=== PATIENT | male | born 1980 | race Caucasian/White ===

== ENCOUNTER 2021-06-28 17:29 | Emergency (ER) | payer SELFPAY ==
[2021-06-28] VITALS (30 sets, daily range): BP systolic 113–161; BP diastolic 75–99; PULSE 89–115; RESP 19–37; TEMP 36.8–38.2; O2SAT 93–98
--- NOTE | 2021-06-28 17:30 | RT.EKG_ITS ---
APPROVED REPORT Exam: Resting ECG Reason for Exam: sob Patient Location: E HR:103 bpm ECG Measurements Heart Rate 103 AXIS SC 122 P 44 QRSd 92 QRS 49 QT 320 T -15 QTc 420 Conclusion Sinus tachycardia...rate> 99 Borderline T abnormalities, diffuse leads...T flat/neg
--- NOTE | 2021-06-28 17:48 | W.ED.GENAD ---
Discharge Plan Disposition Patient Disposition: HOME Condition: Stable Discharge Details Clinical Impression: Pneumonia, Transaminitis, Creatinine elevation Primary Care Provider: Unknown,Unknown ED Provider: Jing Schaeffer Home Meds and New Rx's Prescriptions: New doxycycline hyclate 100 mg capsule 100 mg PO BID Qty: 14 RF: 0 Continued melatonin-pyridoxine HCl (B6) 1 EACH tablet,ext release multiphase 1 ea PO HS Qty: 90 RF: 0 pantoprazole [Protonix] 20 MG tablet,delayed release (DR/EC) 20 mg PO DAILY Qty: 90 RF: 3 venlafaxine 37.5 MG tablet extended release 24hr 20 mg PO DAILY Qty: 30 RF: 3 Discharge Instructions Instructions: Doxycycline (By mouth), Pneumonia (ED) Additional Instructions: Your work-up here is concerning for pneumonia. Please take the antibiotics as prescribed. Even if symptoms improve, please take the entire course. If you develop fever/chills, inability stay hydrated, increase shortness of breath, difficulty breathing or the new/worsening symptom please seek care urgently once again. Referral for local primary care has been sent, care management will reach out to you regarding follow-up next week with them. I have also asked that they discuss your insurance concerning symptoms further. Stand Alone Forms: Work Release Medical Decision Making Patient is a pleasant 30-year-old male presenting today with chief complaint of body aches, cough and shortness of breath. He states he began having body aches and chills approximately 5 days ago. Cough began yesterday. States that today he began having shortness of breath particularly with movements. He denies any chest pain. States that he has vomited x1 today and associated with triggering his gag reflex. Is not currently endorsing any nausea. No diarrhea. Patient reports he has chronic constipation. Denies any abdominal pain. Patient has been vaccinated against COVID-19. No known sick contacts he reports he works in [employer] industry and is around many people every day. On exam, patient appears nontoxic. He does appear dehydrated with dry mucous membranes. His lungs are clear, normal cardiac exam. He has no lower extremity edema or calf pain. Patient is tachycardic with a heart rate of 103. Febrile with a temp of 38.2. Patient is febrile and tachycardic, plan to work-up for possible pneumonia, Covid, or other etiology. With the tachycardia and shortness of breath, I did consider pulmonary embolism and will screen with a D-dimer. Will give Tylenol for the fever and body aches. Will hydrate the patient. Labs reviewed. Potassium slightly low at 1.15. D-dimer is elevated over thousand, will move forward with CT for PE protocol. Creatinine is elevated at 1.4. I do not have any previous for comparison. Again, patient did appear quite dehydrated he is receiving IV fluids at this time. Transaminitis noted. Not significantly elevated. No previous for comparison. Chest x-ray was reviewed by myself, concerning for pneumonia in the right upper lobe. CT reviewed by radiologist: FINDINGS: Pulmonary arteries: There is satisfactory enhancement of the pulmonary arteries with no evidence of pulmonary embolism. Aorta: Unremarkable. No aortic aneurysm. No aortic dissection. Lungs: There is heterogeneous airspace consolidation involving the posterior aspect of the right upper lobe and the posterior aspect of the right lower lobe. No segmental consolidation is seen within the left upper lobe, the left lower lobe, or the right middle lobe. Pleural spaces: Unremarkable. No pneumothorax. No pleural effusion. Heart: Unremarkable. No cardiomegaly. No pericardial effusion. Lymph nodes: Unremarkable. No enlarged lymph nodes. Liver: The liver appears diffusely decreased in density Bones/joints: Unremarkable. No acute fracture. Soft tissues: Unremarkable. IMPRESSION: 1. No evidence of pulmonary embolism. 2. Ty consolidation involving the right upper lobe and right lower lobe consistent with pneumonia. Follow-up until clear is recommended. 3. Fatty liver disease. Discussed findings with the patient. We will begin on doxycycline. Encourage hydration. Advised Tylenol and/or ibuprofen as needed for discomfort. His Covid 19 testing was negative. I advised he follow-up with primary care next week for reevaluation and discuss repeat imaging as indicated. Patient does not have local primary care, I have a care management team to assist with this. Strict return precautions were given. All of his questions and concerns were addressed and he is in agreement plan. First dose of antibiotics as well as dosing for tomorrow morning given to the patient. HPI General Mode of arrival: ambulatory. Date/Time Provider Initiated Documentation: 06/28/21 17:36. Limitations to Documentation: no limitations. Information obtained by: patient and RN notes reviewed. History of Present Illness 40 year old M presents to the emergency department with the chief complaint of cough, fever, SOB, nausea, vomiting, described as moderate, with intensity rated at 6. Quality is described as aching (diffuse body aches), Patient reports no radiation. Patient started experiencing this day(s) (5) and it has been constant. No relieving factors improve symptom(s), No exacerbating factors reported . Patient notes fever/chills, loss of appetite, nausea/vomiting (reports vomiting x 1 after gag reflex today) and shortness of breath; denies chest pain, diaphoresis, rash, syncope and weakness. Patient did receive the following treatments prior to arrival, none Related Data Home Medications Medication Instructions Recorded Confirmed melatonin-pyridoxine HCl (B6) 1 ea PO HS #90 tab.chew 04/13/13 06/28/21 pantoprazole [Protonix] 20 mg PO DAILY #90 tab-cap 08/27/13 venlafaxine 20 mg PO DAILY #30 tab-cap 12/15/13 06/28/21 doxycycline hyclate 100 mg PO BID #14 cap 06/28/21 Previous Rx's Medication Instructions Recorded doxycycline hyclate 100 mg PO BID #14 cap 06/28/21 Allergies Allergy/AdvReac Type Severity Reaction Status Date / Time trazodone Allergy Mild Unverified 06/28/21 18:06 buspirone [Buspirone] AdvReac Intermediate PSYCHOSIS Unverified 06/28/21 18:06 General Stated Complaint: GenMedical JONATHAN: 3 Review of Systems Constitutional Constitutional: Reports as per HPI, Reports chills, Reports fever(s) and Denies headache(s) Eyes Eyes: Reports as per HPI, Denies eye discharge and Denies irritation ENT Ears, Nose, Mouth, and Throat: Reports as per HPI and Denies headache(s) Cardiovascular Cardiovascular: Reports as per HPI, Denies chest pain and Reports dyspnea Respiratory Respiratory: Reports as per HPI, Reports cough, Denies hemoptysis, Denies pain on inspiration, Denies pain with cough, Reports dyspnea and Denies wheezing Gastrointestinal Gastrointestinal: Reports as per HPI, Denies abdominal pain, Denies change in bowel habits, Reports nausea and Reports vomiting Integumentary/Breasts Skin/Breast: Reports as per HPI and Denies rash Neurologic Neurologic: Reports as per HPI and Denies headache(s) Allergic/Immunologic Allergic/Immunologic: Denies wheezing PFSH Social History Smoking/Tobacco Use Status: Never Smoking risk assessment performed?: Yes Alcohol Intake: current Alcohol Intake frequency: a few times a month Drug use: Never Substance use type: does not use Do you feel safe at home: Yes Do you feel safe in your relationship?: Yes Exam Const General: cooperative, healthy appearing, comfortable, no acute distress, well developed and well groomed Nutritional Appearance: well nourished and overweight Orientation: alert and awake [facility] Head: normal to inspection, normocephalic and atraumatic Ears: hearing grossly normal bilaterally, external ears normal and TM's normal bilaterally General nose exam: external nose normal and nares normal Face and sinus: normal facial exam, sinuses nontender and face symmetric Mouth: oral mucosae normal, lip normal, tongue normal, oropharynx normal and mucous membranes dry (appears dry) Teeth and gingiva: dentition normal Throat: posterior oropharynx normal, tonsils normal and uvula midline Eyes General: appearance normal, both eyes and all related structures Neck Neck: normal visual inspection, full ROM, no lymphadenopathy and no meningeal signs Resp Effort & Inspection: normal respiratory effort, able to speak in complete sentences and no respiratory distress Auscultation: clear to auscultation bilaterally, no rales, no rhonchi and no wheezes Cardio Rate: regular rate Rhythm: regular rhythm Heart Sounds: S1 normal and S2 normal Skin General skin exam: no rashes or lesions noted Neuro General: patient alert and patient awake Cognition: normal cognition Speech: speech normal Gait: normal gait Extrem General: normal to inspection, capillary refill normal, no pedal edema, no calf tenderness and normal gait Psych Appearance: grossly normal and well kempt Mental Status: mental status grossly normal Speech and Movement: speech and movement normal Course Vital Signs Vital signs: Vital Signs Temperature 38.2 C H 06/28/21 17:40 Pulse 103 H 06/28/21 17:40 Respiratory Rate 06/28/21 17:40 Blood Pressure 161/86 H 06/28/21 17:40 Pulse Oximetry 98 06/28/21 17:40 Temperature 38.2 C H 06/28/21 17:40 Temperature Source Oral 06/28/21 17:40 Pulse 103 H 06/28/21 17:40 Respiratory Rate 20 06/28/21 17:40 Blood Pressure 161/86 H 06/28/21 17:40 Blood Pressure Position Sitting 06/28/21 17:40 Pulse Oximetry 98 06/28/21 17:40 Oxygen Delivery Method Room Air 06/28/21 17:40 Oxygen Flow Rate 0 06/28/21 17:40
--- NOTE | 2021-06-28 18:00 | DI.RAD_ITS ---
Exam(s) XR PORTABLE CHEST AP EXAM: XR PORTABLE CHEST AP CLINICAL HISTORY: cough, SOB. TECHNIQUE: 2D digital imaging was performed. COMPARISON: No exams were available for comparison FINDINGS: Heart size is upper normal. The mediastinum is not widened. There is a significant area of infiltrate in the right upper lobe. Left lung is clear. No pleural e ffusions. Chest leads in place. IMPRESSION: Right upper lobe infiltrate. Left lung is clear. No pleural effusions. DATA REPOSITORY: RADIATION DOSE DELIVERED: All CT scans at this facility use at least one of these dose optimization techniques: automated exposure control; mA and/or kV adjustment per patient size (includes targeted e xams where dose is matched to clinical indication); or iterative reconstruction.
[2021-06-28] MEDS: Normal Saline 1,000 ML 1000 ML IV (18:09)
[2021-06-28 18:15] LABS: Source Nasal/Nares
[2021-06-28 18:20] LABS: Abs Immature Grans 0.03 10^3/uL (0.0-0.06); Absolute Basophil Count 0.02 10^3/uL (0.0-0.2); Absolute Eosinophil Count 0.05 10^3/uL (0.0-0.7); Absolute Lymphocyte Count 1.15 10^3/uL (1.2-3.4); Absolute Monocyte Count 0.61 10^3/uL (0.1-0.8); Absolute Neutrophil Count 4.84 10^3/uL (1.2-6.7); Basophils % 0.3; Eosinophils % 0.7; HCT 42.6 % (40.0-50.0); HGB 13.9 g/dL (13.5-17.5); Immature Grans % 0.4; Lymphocytes % 17.2; MCHC 32.6 % (32.0-36.0); MCV 88.9 fL (80-95); MPV 8.9 fL (8.0-11.0); Monocytes % 9.1; Neutrophils % 72.3; Nucleated RBC 0 %; Platelet Count 244 10^3/uL (130-400); RBC 4.79 10^6/uL (4.36-5.78); RDW 12.9 % (11.8-14.1)
[2021-06-28] MEDS: Acetaminophen 500 MG TAB 1000 MG PO (18:21)
[2021-06-28 18:32] LABS: ALT 73 U/L (16-63); AST 38 U/L (15-37); Albumin 3.2 g/dL (3.4-5.0); Alkaline Phosphatase 129 U/L (46-116); Anion Gap 10.1 mmol/L (3-11); BUN 11 mg/dL (7-18); Bilirubin, Total 0.3 mg/dL (0.2-1.0); CO2 27.9 mmol/L (21.0-32.0); CREATININE 1.4 mg/dL (0.70-1.30); Calcium 8.7 mg/dL (8.5-10.1); Chloride 102 mmol/L (98-107); Estimated GFR 55.58 (mL/min/1.73m2); Glucose 105 mg/dL (74-106); Potassium 3.5 mmol/L (3.5-5.1); Sodium 140 mmol/L (136-145)
[2021-06-28 18:52] LABS: D-Dimer 1222 ng/mlFEU (<500)
--- NOTE | 2021-06-28 19:00 | DI.CT_ITS ---
Exam(s) CT CHEST PE CTA EXAM: CT CHEST PE CTA CLINICAL HISTORY: SOB, elevated d-dimer. TECHNIQUE: Imaging Protocol: CT angiography of the chest was performed using pulmonary embolus dania col. Multi planar reconstructions were performed. CONTRAST MATERIAL: Intravenous: Omnipaque 350 Contrast volume: 100 cc COMPARISON: No exams were available for comparison FINDINGS: CHEST: PULMONARY ARTERIES: There are no intraluminal filling defects to suggest acute pulmonary emboli. LUNGS: There is a large area of consolidation in the posterior segment of the right upper lobe and al so involving the superior segment and basal segments of the right lower lobe.. There is no associate d pleural effusion. No cavitation. There is sparing of the right middle lobe and left lung is clear . No left pleural effusion. No focal findings in the trachea and mainstem bronchi. MEDIASTINUM: No prominent hilar adenopathy although there is mild subcarinal adenopathy. No adenopat hy in the anterior mediastinal fat. No axillary nor supraclavicular adenopathy. Visualized thyroid gland appears unremarkable. CARDIAC: Heart size is upper normal. There is no pericardial effusion.Caliber of the thoracic aorta is within normal limits. There is no significant shift of the interventricular septum. PARTIALLY VISUALIZED UPPERMOST ABDOMEN: Hepatomegaly. No adrenal masses. Spleen size upper normal. OSSEOUS: No significant osseous lesions.. IMPRESSION: 1. Large right lung infiltrate involving right upper lobe and right lower lobe. Sparing of the right middle lobe. No pleural effusion.Left lung is clear. 2. Slightly prominent subcarinal lymph nodes. No obvious hilar adenopathy. 3. No evidence of pulmonary embolus. No aortic dissection. No pericardial effusion. First read by [facility] RADIATION DOSE DELIVERED: 566.76mGy.cm Total DLP DATA REPOSITORY: All CT scans at this facility are submitted to the National Radiology Data Registry (NRDR) Dose Index Registry (DIR) with the [employer] (A[employer]). RADIATION OPTIMIZATION: All CT scans at this facility use at least one of these dose optimization te chniques: automated exposure control; mA and/or kV adjustment per patient size (includes targeted exa ms where dose is matched to clinical indication); or iterative reconstruction.
--- NOTE | 2021-06-28 19:36 | DI.VRAD_ITS ---
PROCEDURE INFORMATION: Exam: XR Chest Exam date and time: 06/28/2021 6:03 PM Age: 40 years old Clinical indication: Cough and fever TECHNIQUE: Imaging protocol: XR of the chest. Views: 1 view. COMPARISON: No relevant prior studies available. FINDINGS: Lungs: See Pleural spaces finding. Pleural spaces: There is consolidation within the right upper lobe abutting the right minor fissure. Heart/Mediastinum: Unremarkable. No cardiomegaly. Bones/joints: Unremarkable. EKG leads overlie the chest. IMPRESSION: Right upper lobe consolidation suspicious for pneumonia. Follow-up until clear is recommended. Dictated and Authenticated by: Danilo Arias MD. Ordering:ALICE Ch MD
[2021-06-28] MEDS: Omnipaque 350 MG/ML 100 ML BTL IJ (20:04)
[2021-06-28] MEDS: Normal Saline Flush 10 ML SYR IVP (20:04)
--- NOTE | 2021-06-28 20:20 | DI.VRAD_ITS ---
PROCEDURE INFORMATION: Exam: CTA Chest With Contrast Exam date and time: 06/28/2021 7:11 PM Age: 40 years old Clinical indication: Other: SOB, elevated d-dimer TECHNIQUE: Imaging protocol: Computed tomographic angiography of the chest with contrast. 3D rendering (Not supervised by radiologist): MIP and/or 3D reconstructed images were created by the technologist. Contrast material: OMNIPAQUE 350; Contrast volume: 85 ml; Contrast route: INTRAVENOUS (IV); COMPARISON: CR XR PORTABLE CHEST AP 06/28/2021 6:40 PM FINDINGS: Pulmonary arteries: There is satisfactory enhancement of the pulmonary arteries with no evidence of pulmonary embolism. Aorta: Unremarkable. No aortic aneurysm. No aortic dissection. Lungs: There is heterogeneous airspace consolidation involving the posterior aspect of the right upper lobe and the posterior aspect of the right lower lobe. No segmental consolidation is seen within the left upper lobe, the left lower lobe, or the right middle lobe. Pleural spaces: Unremarkable. No pneumothorax. No pleural effusion. Heart: Unremarkable. No cardiomegaly. No pericardial effusion. Lymph nodes: Unremarkable. No enlarged lymph nodes. Liver: The liver appears diffusely decreased in density Bones/joints: Unremarkable. No acute fracture. Soft tissues: Unremarkable. IMPRESSION: 1. No evidence of pulmonary embolism. 2. Ty consolidation involving the right upper lobe and right lower lobe consistent with pneumonia. Follow-up until clear is recommended. 3. Fatty liver disease. Dictated and Authenticated by: Danilo Arias MD. Ordering:ALICE Ch MD
[2021-06-28 20:37] LABS: COVID-19 PCR Negative (Negative)
[2021-06-28] MEDS: Doxycycline Hyclate 100 MG, 2 CAPS/BTL PO (20:58)
--- NOTE | 2021-06-28 21:02 | NUR.NOTE ---
Referral to Care Management to establish PCP in one week for pneumonia, and to get help with resources to get insurance coverage.Nursing Note:
== END 2021-06-28 21:01 | disposition home or self-care (01) ==
PROVIDERS: Emergency Provider Physician Assistant
DX: J18.8 Other pneumonia, unspecified organism (principal); R74.01 Elevation of levels of liver transaminase levels; R94.4 Abnormal results of kidney function studies; R79.1 Abnormal coagulation profile; E86.0 Dehydration; R00.0 Tachycardia, unspecified; Z20.822 Contact with and (suspected) exposure to COVID-19; Z03.818 Encounter for observation for suspected exposure to other biological agents ruled out
CPT/HCPCS: 36415; 71275; 80053; 87635; 93005; 96360; 99285; 71045; 85025; 85379; 93010; 99284; J3490

== ENCOUNTER 2021-07-03 16:22 | Outpatient (REF) | payer SELFPAY ==
[2021-07-05 14:11] LABS: COVID-19 RT-PCR UVMMC Result Negative (Negative)
== END 2021-07-03 16:23 | disposition home or self-care (01) ==
LOC: LBN 16:22
PROVIDERS: Visit Provider Physician Assistant
DX: Z20.822 Contact with and (suspected) exposure to COVID-19 (principal)
CPT/HCPCS: U0003

== ENCOUNTER 2021-07-17 22:45 | Emergency (ER) | payer SELFPAY ==
[2021-07-17 22:49] VITALS: BP 163/99; PULSE 82; RESP 18; TEMP 36.6; O2SAT 97
--- NOTE | 2021-07-17 23:00 | NUR.NOTE ---
Nursing Note: Dr. Cerda at bedside with ultrasound machine. Patient denies any burning with urination or blood in urine.
--- NOTE | 2021-07-17 23:16 | W.ED.GENAD ---
Discharge Plan Disposition Patient Disposition: HOME Condition: Good Discharge Details Clinical Impression: Acute epididymitis Primary Care Provider: Unknown,Unknown ED Provider: Jason Cerda Home Meds and New Rx's Prescriptions: New levofloxacin 500 mg tablet 500 mg PO DAILY 10 Days Qty: 10 RF: 0 Continued melatonin-pyridoxine HCl (B6) 1 EACH tablet,ext release multiphase 1 ea PO HS Qty: 90 RF: 0 omeprazole 20 mg Capsule,Delayed Release(Dr/Ec) 20 mg PO DAILY RF: 0 fluoxetine 20 mg Capsule 20 mg PO DAILY RF: 0 Discharge Instructions Instructions: Epididymitis (ED) Additional Instructions: At this time you have symptoms consistent with epididymitis. Please take 1000 mg of Tylenol every 6 hours and 800 mg of ibuprofen every 4 hours. These are the maximum doses. The antibiotic levofloxacin has been sent to your pharmacy on file. Please take this as directed. We have placed an order for an ultrasound for you tomorrow. Please call them in the morning to schedule a time for further evaluation of your testicle. If you notice any worsening of your symptoms, or any new symptoms such as worsening testicular pain or viselike pain or twisting pain in your testicle, vomiting, diarrhea, fever, chills, shortness of breath, chest pain, numbness, weakness, or fainting , please return immediately to the emergency department for reevaluation. Please follow up with your primary care provider as soon as possible for reassessment and reevaluation. As always, it was a pleasure participating in your medical care today. Referrals: Luis Manuel Moralez MD [ [facility] STAFF PHYSICIAN] - Medical Decision Making This is a 40-year-old male with a past medical history of previous hydrocele on the left testicle, previous left inguinal hernia requiring surgical repair, presents today for right testicular pain and groin pain. Patient had initial onset of symptoms yesterday at 2:30 AM. He described it as achy. It traveled up from his right testicle into his groin. He denies any urinary complaints whatsoever then. The pain went on throughout the day yesterday and then went away on its own. When he awoke this morning he has no pain at all. He had taken Tylenol and Motrin and this helps relieve his symptoms. When he awoke this morning he was pain-free, and continued to be pain-free throughout the day until this evening when the pain again came on gradually throughout the evening. He again describes it as achy in the right testicle radiating up to the groin. He denies any trauma. It is made better with heat, and lying down. It is made worse with palpation. He states last time he ejaculated was 2 weeks ago. No pain or blood done. He states he is not had sex for years, but he does state that he is in a monogamous relationship with his otherwise. He denies any history of STDs or penile discharge. He denies any urethral pain or increased urinary frequency. Patient is uncircumcised. He denies any abdominal pain, nausea, vomiting or diarrhea. He states the pain feels similar to when he had his left hydrocele. Physical exam demonstrates no abdominal tenderness, no flank tenderness, no groin tenderness whatsoever. Patient scrotum demonstrate mild tenderness on palpation of the right testicle no tenderness on palpation of the left. No horizontal or abnormal lie. Cremasteric reflexes present bilaterally. Tenderness is present on the epididymis, as well as minimal tenderness on the testicle itself. On clinical assessment and by history symptoms are clinically inconsistent at time of exam for testicular torsion. In addition to the supplemental examination ultrasound was performed. Ultrasound was limited in nature. Limited ultrasound showed good blood flow throughout, and equivalent blood flow when the 2 testicles. Epididymis appears mildly inflamed on ultrasound. Epididymis is tender on exam. Physical exam and clinical history are inconsistent with testicular torsion at this time. Clinical exam and history appear more consistent at this time with mild epididymitis. We will get a urinalysis to evaluate for potential infection although I feel this is unlikely. Symptoms are also inconsistent acute appendicitis, kidney stone, or incarcerated or strangulated hernia based on assessment and exam at this time. 11:36 PM Urinalysis is returned unremarkable. No evidence of significant RBCs or infection. Pending gonorrhea chlamydia. Will treat with Levaquin, and NSAIDs for epididymitis. Will schedule outpatient ultrasound for further delineation of epididymitis. I have extensively reviewed the treatment plan and discharge instructions with the patient. I have addressed all patient concerns at this time. The patient was made aware of what symptoms to monitor for that would warrant a return to the emergency department. Discussed the plan with the patient, they demonstrate verbal understanding and agreement with our assessment and plan at this time. The documentation in this chart was dictated using [employer] dictation software. Please excuse any dictation errors. HPI General Date/Time Provider Initiated Documentation: 07/17/21 22:47. HPI Narrative: This is a 40-year-old male with a past medical history of previous hydrocele on the left testicle, previous left inguinal hernia requiring surgical repair, presents today for right testicular pain and groin pain. Patient had initial onset of symptoms yesterday at 2:30 AM. He described it as achy. It traveled up from his right testicle into his groin. He denies any urinary complaints whatsoever then. The pain went on throughout the day yesterday and then went away on its own. When he awoke this morning he has no pain at all. He had taken Tylenol and Motrin and this helps relieve his symptoms. When he awoke this morning he was pain-free, and continued to be pain-free throughout the day until this evening when the pain again came on gradually throughout the evening. He again describes it as achy in the right testicle radiating up to the groin. He denies any trauma. It is made better with heat, and lying down. It is made worse with palpation. He states last time he ejaculated was 2 weeks ago. No pain or blood done. He states he is not had sex for years, but he does state that he is in a monogamous relationship with his otherwise. He denies any history of STDs or penile discharge. He denies any urethral pain or increased urinary frequency. Patient is uncircumcised. He denies any abdominal pain, nausea, vomiting or diarrhea. He states the pain feels similar to when he had his left hydrocele. Related Data Home Medications Medication Instructions Recorded Confirmed melatonin-pyridoxine HCl (B6) 1 ea PO HS #90 tab.chew 04/13/13 07/17/21 fluoxetine 20 mg PO DAILY 07/17/21 07/17/21 levofloxacin 500 mg PO DAILY 10 Days #10 tab 07/17/21 omeprazole 20 mg PO DAILY 07/17/21 07/17/21 Previous Rx's Medication Instructions Recorded levofloxacin 500 mg PO DAILY 10 Days #10 tab 07/17/21 Allergies Allergy/AdvReac Type Severity Reaction Status Date / Time trazodone Allergy Mild Verified 07/17/21 22:53 buspirone [Buspirone] AdvReac Intermediate PSYCHOSIS Verified 07/17/21 22:53 General Stated Complaint: FlankPain JONATHAN: 3 Review of Systems All systems reviewed & are unremarkable except as noted in HPI and below PFSH Social History Smoking/Tobacco Use Status: Never Smoking risk assessment performed?: Yes Alcohol Intake: former Drug use: Never Substance use type: does not use Do you feel safe at home: Yes Do you feel safe in your relationship?: Yes Exam Narrative Exam Narrative: 1.Const: Well-nourished, Well-developed, appearing stated age 2.Eyes: PERRL, no conjunctival injection, and symmetrical lids. 3.ENT: Atraumatic external nose and ears. Moist MM. Neck: Symmetric, trachea midline, No thyromegaly. 4.CVS: +S1/S2, No murmurs or gallops. Peripheral pulses 2+ and equal in all extremities. Brisk capillary refill in all extremities. 5.RESP: Unlabored respiratory effort. Clear to auscultation bilaterally. No wheezes rales or rhonchi 6.GI: Soft, Nontender/Nondistended, No hepatosplenomegaly. No guarding or rebound. No pain at McBurney's point, negative Anthony sign. No flank or CVA tenderness General exam: Entire genital exam and ultrasound was performed with female nurse Stefani at bedside. Left testicle is nontender, normal lie. Right testicle also demonstrates normal lie, no horizontal lie. Mild tenderness on the testicle itself, as well as by the epididymis. No palpable hydrocele or mass. Cremasteric reflexes present bilaterally for both testicles. No palpable hernia on exam in the scrotum or in the distal right groin. Questionable small hernia proximally, but this is notably nontender. No redness swelling or edema in that area. Limited bedside ultrasound was performed, and testicle demonstrates good blood flow throughout the right testicle, comparison with the left testicle demonstrates equivalent blood throat flow throughout. Mild edema of the epididymis noted on bedside ultrasound. No atypical mass is noted. Penis is uncircumcised. Retraction of foreskin demonstrates no purulence, no discharge, no tenderness or evidence of infection. 7.MSK: Normocephalic/Atraumatic, Extremities w/o deformity or ttp No cyanosis or clubbing, Normal movement of all extremities 8.Skin: Warm, Dry. No rashes or lesions. 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 Sensation grossly intact, no focal neurologic deficits. 10.Psych: (AAO) x3. Appropriate mood and affect Course Vital Signs Vital signs: Vital Signs Temperature 36.6 C 07/17/21 22:49 Pulse 82 07/17/21 22:49 Respiratory Rate 18 07/17/21 22:49 Blood Pressure 163/99 H 07/17/21 22:49 Pulse Oximetry 97 07/17/21 22:49 Temperature 36.6 C 07/17/21 22:49 Temperature Source Temporal Artery Scan 07/17/21 22:49 Pulse 82 07/17/21 22:49 Respiratory Rate 18 07/17/21 22:49 Respiratory Effort Non-Labored 07/17/21 22:57 Blood Pressure 163/99 H 07/17/21 22:49 Blood Pressure Position Supine 07/17/21 22:49 Pulse Oximetry 97 07/17/21 22:49 Oxygen Delivery Method Room Air 07/17/21 22:49 Oxygen Flow Rate 0 07/17/21 22:49 Pain Level 6 07/17/21 22:58
[2021-07-17 23:28] LABS: Bilirubin Negative (Negative); Blood Trace-intact (Negative); Clarity Clear (Clear); Glucose Negative (Negative); Ketones Negative (Negative); Leukocyte Esterase Negative (Negative); Nitrite Negative (Negative); Specific Gravity >= 1.030 (1.005-1.025); Urobilinogen 0.2 EU/dL (Up TO 0.2)
[2021-07-17 23:30] LABS: Bacteria Negative HPF (Negative); C & S Indicated? No; Casts Negative LPF (Negative); Crystals Negative HPF (Negative); Epithelial Cells Rare HPF (Negative); Mucus Negative (Negative); RBC 0-2 HPF (0-2); WBC Negative HPF (0-5)
[2021-07-17 23:47] LABS: Bilirubin Negative (Negative); Blood Trace-intact (Negative); Clarity Clear (Clear); Glucose Negative (Negative); Ketones Negative (Negative); Leukocyte Esterase Negative (Negative); Nitrite Negative (Negative); Specific Gravity >= 1.030 (1.005-1.025); Urobilinogen 0.2 EU/dL (Up TO 0.2)
[2021-07-17] MEDS: levoFLOXacin 500 MG TAB PO (23:47)
[2021-07-17 23:53] LABS: Bacteria Rare HPF (Negative); C & S Indicated? No; Casts Negative LPF (Negative); Crystals Negative HPF (Negative); Epithelial Cells Rare HPF (Negative); Mucus Negative (Negative); RBC 0-2 HPF (0-2); WBC Negative HPF (0-5)
--- NOTE | 2021-07-18 00:23 | NUR.NOTE ---
Out Patient ultra sound req. faxed to [facility]. Copy given to patient and told to call [phone] to make appt for 07/18/21.Nursing Note:
[2021-07-19 16:09] LABS: Chlamydia Result Negative (Negative); GC Result Negative (Negative)
== END 2021-07-18 00:23 | disposition home or self-care (01) ==
PROVIDERS: Emergency Provider Student in an Organized Health Care Education/Training Program
DX: N45.1 Epididymitis (principal)
CPT/HCPCS: 87491; 87591; 99283; 81003; 81015

== ENCOUNTER 2021-09-18 19:19 | Emergency (ER) | payer SELFPAY ==
[2021-09-18 19:24] VITALS: BP 163/91; PULSE 103; RESP 18; TEMP 36.8; O2SAT 97
--- NOTE | 2021-09-18 19:41 | ED.GENADUL_ITS ---
Discharge Plan Disposition Patient Disposition: HOME Condition: Stable Discharge Details Clinical Impression: Kidney stone on left side Primary Care Provider: Unknown,Unknown ED Provider: Lynette Byers Home Meds and New Rx's Prescriptions: New tamsulosin 0.4 mg capsule 0.4 mg PO QHS 7 Days Qty: 7 RF: 0 oxycodone 5 mg capsule 5 mg PO Q8H PRN (Reason: pain) Qty: 7 RF: 0 No Action melatonin-pyridoxine HCl (B6) 1 EACH tablet,ext release multiphase 1 ea PO HS Qty: 90 RF: 0 omeprazole 20 mg Capsule,Delayed Release(Dr/Ec) 20 mg PO DAILY RF: 0 fluoxetine 20 mg Capsule 20 mg PO DAILY RF: 0 Discharge Instructions Instructions: Kidney Stones (ED) Additional Instructions: CT shows kidney stones to both kidneys. The kidney stone on the left side where you are having pain is causing a little bit of backup of fluid in your kidney. Please strain all your urine. Follow-up with urology in 1 week. Take the medications as directed. Please take the tamsulosin 1 a day at bedtime. Take the oxycodone with food as needed for moderate to severe pain. Please stay away from NSAID such as ibuprofen. Follow up with primary care provider in 3-5 days. Return to ED sooner if any worsening or concerns. Increase oral fluids. Referrals: Luis Manuel Moralez MD [ [facility] STAFF PHYSICIAN] - 1 week Medical Decision Making CBC, CMP, lipase, urinalysis, CT abdomen pelvis with IV contrast ordered. Differential diagnosis includes but not limited to kidney stone, diverticulitis, epididymitis, hydrocele, or less likely testicular torsion. CBC shows no leukocytosis, hemoglobin 13.2, absolute neutrophils 6.94, sodium 136 potassium 4.1, BUN is 25 and creatinine is 2.1 GFR is 34.81 which is elevated for the patient. In June the creatinine was 1.4, urinalysis shows trace blood 3-5 RBCs. FINDINGS: Liver: Unremarkable. Gallbladder and bile ducts: Unremarkable. Pancreas: Unremarkable. Spleen: Unremarkable. Adrenal glands: Unremarkable. Kidneys and ureters: There is a non-obstructing right upper pole renal calculus 0.2 cm. There is a 0.2 cm calculus at the left ureterovesical junction. There is moderate left hydroureteronephrosis. There is non-specific perinephric fat stranding. Stomach and bowel: There is descending colonic diverticulosis. No dilated loops of bowel to suggest obstruction. Appendix: No evidence of appendicitis. Intraperitoneal space: No free air. No significant fluid collection. Vasculature: No abdominal aortic aneurysm. Lymph nodes: No enlarged lymph nodes. Urinary bladder: Unremarkable as visualized. Reproductive: Unremarkable as visualized. Bones/joints: Degenerative changes in the lumbar spine. No acute fracture. Soft tissues: Unremarkable. IMPRESSION: 1. Left ureterovesical junction calculus with moderate left hydroureteronephrosis. 2. Descending colonic diverticulosis. 2229: Spoke with Dr. Moralez with urology regarding patient case and details he recommends tamsulosin pain medication and follow-up in the office in approximately [address] results and plan of care for follow-up with patient who verbalizes understanding. I did discuss strict return instructions and plan for follow-up with urology. Patient is hemodynamically stable here in the department. He has not required any pain control while here tonight. Patient discharged with a urine strainer and instructions for home care. This text was generated using [employer] system, please disregard any oddities of phrase or misspellings. HPI General Mode of arrival: ambulatory . Date/Time Provider Initiated Documentation: 09/18/21 19:19 . Limitations to Documentation: no limitations . Information obtained by: patient and RN notes reviewed . HPI Narrative: 40-year-old male presents to the ER with chief complaint of left lower quadrant abdominal pain which radiates around to his left groin this began approximately 48 to 72 hours ago. He does endorse some nausea and vomiting. He denies any dysuria. Does have a history of right-sided epididymitis. He denies any swelling in his testicles. He reports the pain gets worse after eating. Denies any fever chills or any other associated symptoms. Past surgical history includes hernia repair years ago. Related Data Home Medications Medication Instructions Recorded Confirmed melatonin-pyridoxine HCl (B6) 1 ea PO HS #90 tab.chew 04/13/13 09/18/21 fluoxetine 20 mg PO DAILY 07/17/21 09/18/21 omeprazole 20 mg PO DAILY 07/17/21 09/18/21 oxycodone 5 mg PO Q8H PRN #7 cap 09/18/21 tamsulosin 0.4 mg PO QHS 7 Days #7 cap 09/18/21 Previous Rx's Medication Instructions Recorded oxycodone 5 mg PO Q8H PRN #7 cap 09/18/21 tamsulosin 0.4 mg PO QHS 7 Days #7 cap 09/18/21 Allergies Allergy/AdvReac Type Severity Reaction Status Date / Time trazodone Allergy Mild Verified 09/18/21 19:28 buspirone [Buspirone] AdvReac Intermediate PSYCHOSIS Verified 09/18/21 19:28 General Stated Complaint: Abd Prob JONATHAN: 3 Review of Systems All systems reviewed & are unremarkable except as noted in HPI and below Gastrointestinal Gastrointestinal: Reports abdominal pain, Denies diarrhea, Reports nausea and Reports vomiting Genitourinary Genitourinary: Denies dysuria and Reports flank pain PFSH All Active Problems (Updated 09/18/21 @ 22:33 by Lynette Byers) Acute epididymitis (Acute) Kidney stone on left side (Acute) Pneumonia (Acute) Transaminitis (Acute) Creatinine elevation (Acute) Social History Smoking/Tobacco Use Status: Never Smoking risk assessment performed?: Yes Alcohol Intake: former Drug use: Never Substance use type: does not use Do you feel safe at home: Yes Do you feel safe in your relationship?: Yes Exam Narrative Exam Narrative: Constitutional: Alert and oriented x3. Appears stated age. Normal body habitus. Head: Normocephalic, no trauma. Eyes: Pupils PERRL, Red reflex noted, EOM's intact. Eyelids symmetrical without lesions, discharge, or swelling. ENT: Bilateral TM's WNL, External ear normal to inspection, no mastoid TTP, swelling, or erythema, Nasal turbinates WNL, no nasal discharge. Normal dentition, Posterior pharynx WNL, no exudate. Chest: RRR, Normal S1, S2, distal pulses intact. Resp: Lungs clear to auscultation bilaterally, no wheezes, rales, or rhonchi. Abdomen: Soft, non-distended, Normoactive bowel sounds all 4 quads. Tenderness to palpation left lower quadrant. Musculoskeletal: Normal gait, 5/5 strength to all four extremities. Skin: No suspicious rashes or lesions. Capillary refill less than 2 sec. Neurologic: Cranial nerves II-XII intact. Alert and oriented x 3. Motor: No deficits noted. Sensory: Intact bilaterally all 4 extremities. Reflexes: DTR's intact bilaterally.. Hematologic/Lymphatic: No ecchymosis, no lymphadenopathy. Course Vital Signs Vital signs: Vital Signs Temperature 36.8 C 09/18/21 19:24 Pulse 103 H 09/18/21 19:24 Respiratory Rate 18 09/18/21 19:24 Blood Pressure 163/91 H 09/18/21 19:24 Pulse Oximetry 97 09/18/21 19:24 Temperature 36.8 C 09/18/21 19:24 Temperature Source Temporal Artery Scan 09/18/21 19:24 Pulse 103 H 09/18/21 19:24 Respiratory Rate 18 09/18/21 19:24 Respiratory Effort 09/18/21 19:31 Blood Pressure 163/91 H 09/18/21 19:24 Pulse Oximetry 97 09/18/21 19:24 Pain Level 4 09/18/21 19:24
[2021-09-18] MEDS: Normal Saline 1,000 ML 1000 ML IV (19:59)
[2021-09-18 20:04] LABS: Abs Immature Grans 0.04 10^3/uL (0.0-0.06); Absolute Basophil Count 0.02 10^3/uL (0.0-0.2); Absolute Eosinophil Count 0.07 10^3/uL (0.0-0.7); Absolute Monocyte Count 0.98 10^3/uL (0.1-0.8); Absolute Neutrophil Count 6.94 10^3/uL (1.2-6.7); Basophils % 0.2; Eosinophils % 0.7; HGB 13.2 g/dL (13.5-17.5); Immature Grans % 0.4; Lymphocytes % 19.1; MCH 29.5 pg (27.0-33.0); MCV 89.5 fL (80-95); MPV 8.7 fL (8.0-11.0); Monocytes % 9.8; Neutrophils % 69.8; Nucleated RBC 0 %; Platelet Count 218 10^3/uL (130-400); RBC 4.47 10^6/uL (4.36-5.78); RDW 12.8 % (11.8-14.1); RDW-SD 42.1 fL; WBC 9.95 10^3/uL (4.4-10.8)
[2021-09-18 20:11] LABS: Bilirubin Negative (Negative); Blood Trace-intact (Negative); Clarity Clear (Clear); Glucose Negative (Negative); Ketones Negative (Negative); Leukocyte Esterase Negative (Negative); Nitrite Negative (Negative); Specific Gravity >= 1.030 (1.005-1.025); Urobilinogen 0.2 EU/dL (Up TO 0.2)
[2021-09-18 20:17] LABS: ALT 38 U/L (16-63); AST 22 U/L (15-37); Albumin 3.8 g/dL (3.4-5.0); Alkaline Phosphatase 105 U/L (46-116); BUN 25 mg/dL (7-18); Bilirubin, Total 0.3 mg/dL (0.2-1.0); CO2 26.1 mmol/L (21.0-32.0); CREATININE 2.1 mg/dL (0.70-1.30); Calcium 8.4 mg/dL (8.5-10.1); Estimated GFR 34.81 (mL/min/1.73m2); Glucose 117 mg/dL (74-106); Lipase 39 U/L (73-393); Magnesium 2.3 mg/dL (1.8-2.4); Total Protein 7.4 g/dL (6.4-8.2)
[2021-09-18 20:19] LABS: Bacteria Negative HPF (Negative); C & S Indicated? No; Crystals Negative HPF (Negative); Epithelial Cells Few HPF (Negative); Mucus Trace (Negative); WBC Negative HPF (0-5)
[2021-09-18 20:23] LABS: Anion Gap 5.9 mmol/L (3-11); Chloride 104 mmol/L (98-107); Potassium 4.1 mmol/L (3.5-5.1); Sodium 136 mmol/L (136-145)
--- NOTE | 2021-09-18 21:00 | DI.CT_ITS ---
Exam(s) CT ABDOMEN PELVIS WO EXAM: CT ABDOMEN PELVIS WO CLINICAL HISTORY: Left Flank pain, R/O Stone, Diverticulitis. TECHNIQUE: Imaging Protocol: Axial computed tomography images with coronal and sagittal reformatted images were created and reviewed. COMPARISON: CT CT CHEST PE CTA from 06/28/[address] CHEST PE CTA from 06/28/2021 FINDINGS: ABDOMEN: Lung Bases: Normal where visualized. Liver: There is diffuse fatty infiltration of the liver. There is a 4 mm hypodensity in the left lob e of the liver. This is indeterminate on this noncontrast examination. Gallbladder and biliary tract: No radiodense calculus or biliary ductal dilation. Pancreas: Normal density, no abnormal calcifications or inflammatory process. Spleen: Normal. Kidneys: Normal size, contour and axis.There is a 3 mm stone in the distal ureter at the UVJ. There is moderate hydronephrosis. No masses seen. There is a nonobstructing 2 mm stone in the superior reinaldo e of the right kidney. Adrenal glands: No mass is seen. Lymph nodes: Within normal limits. Abdominal Aorta: Abdominal portion non-dilated. PELVIS: Bladder:Symmetric distention, no gross wall thickening. Bowel: No obstruction or bowel wall thickening. Appendix is unremarkable. There is diverticulosis in the sigmoid colon, but no evidence of acute diverticulitis. Peritoneal cavity: No ascites, collection or mesenteric inflammatory response. No free air. Reproductive organs: Within normal limits. Bones: Within normal limits. Soft Tissues: Within normal limits. There is a small fat containing left inguinal hernia. IMPRESSION: 3 mm left UVJ stone causing moderate hydronephrosis. RADIATION DOSE DELIVERED: 1,105.43mGy.cm Total DLP DATA REPOSITORY: All CT scans at this facility are submitted to the National Radiology Data Registry (NRDR) Dose Index Registry (DIR) with the [employer] (ACR). RADIATION OPTIMIZATION: All CT scans at this facility use at least one of these dose optimization te chniques: automated exposure control; mA and/or kV adjustment per patient size (includes targeted exa ms where dose is matched to clinical indication); or iterative reconstruction.
[2021-09-18 22:02] LABS: Anion Gap 7.7 mmol/L (3-11); BUN 24 mg/dL (7-18); CO2 26.3 mmol/L (21.0-32.0); Calcium 8.2 mg/dL (8.5-10.1); Chloride 105 mmol/L (98-107); Estimated GFR 36.82 (mL/min/1.73m2); Glucose 120 mg/dL (74-106); Potassium 4.1 mmol/L (3.5-5.1); Sodium 139 mmol/L (136-145)
--- NOTE | 2021-09-18 22:17 | DI.VRAD_ITS ---
PROCEDURE INFORMATION: Exam: CT Abdomen And Pelvis Without Contrast Exam date and time: 09/18/2021 9:01 PM Age: 40 years old Clinical indication: Abdominal pain; Patient HX: Left flank pain, R/O stone, diverticulitis TECHNIQUE: Imaging protocol: Computed tomography of the abdomen and pelvis without contrast. Total images: 1339 Radiation optimization: All CT scans at this facility use at least one of these dose optimization techniques: automated exposure control; mA and/or kV adjustment per patient size (includes targeted exams where dose is matched to clinical indication); or iterative reconstruction. COMPARISON: CT CHEST PE CTA 06/28/2021 7:45 PM FINDINGS: Liver: Unremarkable. Gallbladder and bile ducts: Unremarkable. Pancreas: Unremarkable. Spleen: Unremarkable. Adrenal glands: Unremarkable. Kidneys and ureters: There is a non-obstructing right upper pole renal calculus 0.2 cm. There is a 0.2 cm calculus at the left ureterovesical junction. There is moderate left hydroureteronephrosis. There is non-specific perinephric fat stranding. Stomach and bowel: There is descending colonic diverticulosis. No dilated loops of bowel to suggest obstruction. Appendix: No evidence of appendicitis. Intraperitoneal space: No free air. No significant fluid collection. Vasculature: No abdominal aortic aneurysm. Lymph nodes: No enlarged lymph nodes. Urinary bladder: Unremarkable as visualized. Reproductive: Unremarkable as visualized. Bones/joints: Degenerative changes in the lumbar spine. No acute fracture. Soft tissues: Unremarkable. IMPRESSION: 1. Left ureterovesical junction calculus with moderate left hydroureteronephrosis. 2. Descending colonic diverticulosis. Dictated and Authenticated by: Monique Staton MD. Ordering:DINO Ojeda MD
--- NOTE | 2021-09-18 22:33 | NUR.NOTE ---
Referral to Care Management to establish pcp routinely and faxed to Dr Moralez to f/u in one week, L UVJ Kidney Stone.Nursing Note:
[2021-09-18] MEDS: Tamsulosin 0.4 MG CAPCR PO (22:39)
[2021-09-18 22:44] VITALS: BP 151/102; PULSE 93; RESP 18; TEMP 37.2; O2SAT 96
== END 2021-09-18 22:49 | disposition home or self-care (01) ==
PROVIDERS: Emergency Provider Registered Nurse Emergency
DX: N13.2 Hydronephrosis with renal and ureteral calculous obstruction (principal); R10.32 Left lower quadrant pain
CPT/HCPCS: 80048; 80053; 83690; 96360; 99284; 74176; 81003; 81015; 83735; 85025

== ENCOUNTER 2021-12-26 17:17 | Outpatient (REF) | payer SELFPAY ==
[2021-12-26 20:12] LABS: Bilirubin Negative (Negative); Blood Negative (Negative); Clarity Clear (Clear); Glucose Negative (Negative); Ketones Negative (Negative); Leukocyte Esterase Negative (Negative); Nitrite Negative (Negative); Specific Gravity >= 1.030 (1.005-1.025); Urobilinogen 0.2 EU/dL (Up TO 0.2); pH 5.5 (5-8)
== END 2021-12-26 17:18 | disposition home or self-care (01) ==
LOC: LBN 17:17
PROVIDERS: Visit Provider Physician Assistant
DX: R39.9 Unspecified symptoms and signs involving the genitourinary system (principal)
CPT/HCPCS: 81003

== ENCOUNTER 2021-12-28 23:34 | Emergency (ER) | payer SELFPAY ==
[2021-12-28 23:39] VITALS: BP 162/90; PULSE 87; RESP 18; TEMP 36.7; O2SAT 98
--- NOTE | 2021-12-28 23:45 | DI.CT_ITS ---
Exam(s) CT RENAL COLIC WO EXAM: CT RENAL COLIC WO CLINICAL HISTORY: R flank and testicle pain. TECHNIQUE: Imaging Protocol: Axial computed tomography images with coronal and sagittal reformatted images were created and reviewed. COMPARISON: CT CT ABDOMEN PELVIS WO from 09/18/2021 FINDINGS: ABDOMEN: Lung Bases: Normal where visualized. Liver: Normal density. No measurable mass. Gallbladder and biliary tract: No radiodense calculus or biliary ductal dilation. Pancreas: Normal density, no abnormal calcifications or inflammatory process. Spleen: Normal. Kidneys: Normal size, contour and axis.There is a 3 mm nonobstructing stone in the midpole of the rig ht kidney. There is mild dilatation of the right ureter but no ureteral stone is seen. There is a 2 mm density in the dependent portion of the urinary bladder which may reflect a recently passed stone . No masses seen. Adrenal glands: No mass is seen. Lymph nodes: Within normal limits. Abdominal Aorta: Abdominal portion non-dilated. PELVIS: Bladder:Symmetric distention, no gross wall thickening. Bowel: No obstruction or bowel wall thickening. Appendix is unremarkable. There are few diverticula in the sigmoid colon, but no evidence of acute diverticulitis. Peritoneal cavity: No ascites, collection or mesenteric inflammatory response. No free air. Reproductive organs: Within normal limits. Bones: Within normal limits. Soft Tissues: Small fat containing left inguinal hernia. IMPRESSION: 1. Mild dilatation of the right renal collecting system without a ureteral stone. There is a 2 mm de nsity in the dependent portion of the urinary bladder probably reflecting a recently passed stone. 2. Right nephrolithiasis. RADIATION DOSE DELIVERED: 924.9mGy.cm Total DLP DATA REPOSITORY: All CT scans at this facility are submitted to the National Radiology Data Registry (NRDR) Dose Index Registry (DIR) with the [employer] (ACR). RADIATION OPTIMIZATION: All CT scans at this facility use at least one of these dose optimization te chniques: automated exposure control; mA and/or kV adjustment per patient size (includes targeted exa ms where dose is matched to clinical indication); or iterative reconstruction.
--- NOTE | 2021-12-28 23:54 | ED.GENADUL_ITS ---
Discharge Plan Disposition Patient Disposition: HOME Condition: Improving Discharge Details Clinical Impression: Renal colic on right side Primary Care Provider: Unknown,Unknown ED Provider: Nikita Zimmerman Home Meds and New Rx's Prescriptions: Continued levofloxacin 500 mg tablet 500 mg PO DAILY Qty: 10 0RF melatonin-pyridoxine HCl (B6) 1 EACH tablet,ext release multiphase 1 ea PO HS Qty: 90 0RF omeprazole 20 mg Capsule,Delayed Release(Dr/Ec) 20 mg PO DAILY 0RF fluoxetine 20 mg Capsule 20 mg PO DAILY 0RF Discharge Instructions Instructions: Abdominal Pain (ED) Additional Instructions: Your CAT scan had the appearance of a recently passed kidney stone. Sometimes, there will be persistent crampy pain from the passage of the stone. I recommend you finish/complete the previously prescribed course of antibiotics and follow-up with outpatient ultrasound as already ordered. Home to rest tonight. Tylenol if needed for persistent pain. Small, frequent sips of fluids so that you maintain good hydration. Medical Decision Making 41-year-old male presents with 2-1/2 days of right testicular pain. He has a history of epididymitis, was seen at local urgent care on December 26 and placed on Levaquin. Tonight he states pain seemed to escalate and radiate to his right flank. He has noted some increased urgency and frequency of urination. Patient arrives ER afebrile with a reassuring exam. No evidence of testicular torsion by history or physical exam.. His report of referral of the pain to the right flank today, in conjunction with a history of kidney stones raised the question of ureteral colic. Patient was referred for urinalysis and renal protocol CT scan. UA shows specific gravity of 1.03, positive protein, positive blood with micro urinalysis that reveals predominantly red blood cells. CT images: See formal report. Mild perirenal/periureteral stranding. Appearance suspicious for recently passed stone. Given that hematuria and patient's symptoms with flank pain I do feel he has likely passed a kidney stone. Discussed this with him. He will continue and complete the previously prescribed Levaquin and follow-up with outpatient ultrasound as previously ordered HPI General Mode of arrival: ambulatory . Date/Time Provider Initiated Documentation: 12/28/21 23:46 . Limitations to Documentation: no limitations . Information obtained by: patient . History of Present Illness 41 year old M presents to the emergency department with the chief complaint of 2-1/2 days of right testicle pain, now radiating to right back, described as moderate and s imilar to prior episodes, Quality is described as dull, and is localized to the genitals and right. Patient reports radiation to back. Patient started experiencing this day(s) and it has been intermittent. improves with No relieving factors improve symptom(s), No exacerbating factors reported . Patient notes denies fever/chills and loss of appetite. Patient did receive the following treatments prior to arrival, NSAID and other (On Levaquin) Related Data Home Medications Medication Instructions Recorded Confirmed melatonin ER 10 mg-pyridoxine HCl 1 ea PO HS #90 tab.chew 04/13/13 12/28/21 (B6) 10 mg tab, immed-extend release fluoxetine 20 mg capsule 20 mg PO DAILY 07/17/21 12/28/21 omeprazole 20 mg capsule,delayed 20 mg PO DAILY 07/17/21 12/28/21 release levofloxacin 500 mg tablet 500 mg PO DAILY #10 tab 12/26/21 12/28/21 Previous Rx's Medication Instructions Recorded levofloxacin 500 mg tablet 500 mg PO DAILY #10 tab 12/26/21 Allergies Allergy/AdvReac Type Severity Reaction Status Date / Time trazodone Allergy Mild Verified 12/28/21 23:44 buspirone [Buspirone] AdvReac Intermediate PSYCHOSIS Verified 12/28/21 23:44 General Stated Complaint: Male Reproductive Problem JONATHAN: 4 Review of Systems Narrative: Some increased urgency and frequency of urination. Normal erection and ejaculation. No fevers. Taking Levaquin. 8 systems were reviewed and otherwise negative PFSH All Active Problems (Updated 12/29/21 @ 01:28 by Nikita Zimmerman MD) Renal colic on right side (Acute) Acute epididymitis (Acute) Kidney stone on left side (Acute) Pneumonia (Acute) Transaminitis (Acute) Creatinine elevation (Acute) Social History Smoking/Tobacco Use Status: Never Smoking risk assessment performed?: Yes Alcohol Intake: former Drug use: Never Substance use type: does not use Do you feel safe at home: Yes Do you feel safe in your relationship?: Yes Exam Narrative Exam Narrative: GEN: awake, alert, oriented 3. Pleasant, well groomed, interactive. HEAD: Normocephalic, atraumatic ENT: Mucous membranes moist, oropharynx unremarkable, External ear exam unremarkable EYES: PERRL, EOMI NECK: Full ROM, no DAVID, no menigismus CHEST/RESP: Nontender, clear to auscultation bilateral, no wheeze/rhonchi/rales CARDIOVASCULAR: RRR, no murmur, rub alley. 2+ Rad pulse bilateral ABDOMEN: Soft, nontender, no mass. +Bowel sounds. : Uncircumcised, testes descended bilaterally. Minimal right superior testicular tenderness, normal lie. No swelling. EXT: Full ROM, no edema, no rash Neuro: Grossly normal neurologic exam, conversant, interactive. Psych: Speech fluent, thoughts congruent, affect normal Course Vital Signs Vital signs: Vital Signs Temperature 36.7 C 12/28/21 23:39 Pulse 87 12/28/21 23:39 Respiratory Rate 18 12/28/21 23:39 Blood Pressure 162/90 H 12/28/21 23:39 Pulse Oximetry 98 12/28/21 23:39 Temperature 36.7 C 12/28/21 23:39 Temperature Source Temporal Artery Scan 12/28/21 23:39 Pulse 87 12/28/21 23:39 Respiratory Rate 18 12/28/21 23:39 Blood Pressure 162/90 H 12/28/21 23:39 Pulse Oximetry 98 12/28/21 23:39 Oxygen Delivery Method Room Air 12/28/21 23:39 Oxygen Flow Rate 0 12/28/21 23:39 Pain Level 3 12/28/21 23:39
[2021-12-29 00:08] LABS: Clarity Cloudy (Clear); Specific Gravity >= 1.030 (1.005-1.025)
[2021-12-29 00:09] LABS: Bilirubin Negative (Negative); Blood Large (Negative); Glucose Negative (Negative); Ketones Trace mg/dL (Negative); Leukocyte Esterase Trace (Negative); Nitrite Negative (Negative); Urobilinogen 0.2 EU/dL (Up TO 0.2); pH 5.5 (5-8)
[2021-12-29 00:13] LABS: Bacteria Few HPF (Negative); C & S Indicated? Yes; Crystals Few Amorphous HPF (Negative); Epithelial Cells Negative HPF (Negative); Mucus Negative (Negative); RBC >50 HPF (0-2)
--- NOTE | 2021-12-29 01:25 | DI.VRAD_ITS ---
PROCEDURE INFORMATION: Exam: CT Abdomen And Pelvis Without Contrast Exam date and time: 12/29/2021 12:15 AM Age: 41 years old Clinical indication: Abdominal pain; Flank; Right; Prior surgery; Surgery date: 6+ months; Surgery type: PT states hernia surgery and hydrocele as a teenager; Additional info: PT states right flank pain and testicular pain TECHNIQUE: Imaging protocol: Computed tomography of the abdomen and pelvis without contrast. Total images: 1271 Radiation optimization: All CT scans at this facility use at least one of these dose optimization techniques: automated exposure control; mA and/or kV adjustment per patient size (includes targeted exams where dose is matched to clinical indication); or iterative reconstruction. COMPARISON: CT ABDOMEN PELVIS WO 09/18/2021 8:57 PM FINDINGS: Lungs: Visualized lung bases are clear. Heart: Heart size normal. Mediastinal space: The visualized distal esophagus is largely contracted without gross abnormality. Liver: Normal contour. No mass lesions. No intrahepatic biliary ductal dilatation. Gallbladder and bile ducts: Normal. No calcified stones. No ductal dilation. Pancreas: Mild pancreatic atrophy without acute abnormality. No pancreatic ductal dilatation. Spleen: Normal. No splenomegaly. Adrenal glands: Normal. No adrenal mass. Kidneys and ureters: Mild right-sided ureterectasis with slight caliectasis and mild perirenal/periureteral stranding. No ureteral stones are identified currently. The appearance is suspicious for recently passed stone, or possibly UTI. 3 mm nonobstructive stone in the upper pole of the right kidney. The left kidney and left collecting system are unremarkable. Stomach and bowel: The stomach is moderately distended with food content but otherwise unremarkable. The small bowel is nondilated with no gross abnormality. No acute colonic abnormalities. Appendix: The appendix is normal in caliber and demonstrates no evidence of appendicitis. Intraperitoneal space: No free fluid or air. Vasculature: No acute process. No abdominal aortic aneurysm. Lymph nodes: No adenopathy. Urinary bladder: Unremarkable as visualized. Reproductive: Unremarkable as visualized. Bones/joints: No acute osseous abnormalities. Transitional lumbosacral segment designated a partially sacralized L5 segment for purposes of this exam. Soft tissues: Small fatty left inguinal hernia with no associated bowel herniation or evidence of strangulation.. IMPRESSION: 1. Right-sided ureterectasis and slight caliectasis with mild right perirenal/periureteral stranding. No obstructive urinary tract stones are identified currently, however the appearance may relate to a recently passed stone. Alternatively UTI might produce this appearance. 2. There is a nonobstructive 3 mm right renal stone in the upper pole. 3. Small fatty left inguinal hernia with no associated bowel herniation or evidence of strangulation.. 4. Additional nonemergent findings detailed above. Dictated and Authenticated by: Bib Melo MD. Ordering:MARIA TERESA Shelton MD
[2021-12-29 01:29] VITALS: BP 139/83; PULSE 80; RESP 16; TEMP 36.4; O2SAT 96
[2021-12-29 01:35] VITALS: BP 132/64; PULSE 68; RESP 18; TEMP 36.5; O2SAT 98
== END 2021-12-29 02:30 | disposition home or self-care (01) ==
LOC: ER 12-29 01:35
PROVIDERS: Emergency Provider Emergency Medicine
DX: N23 Unspecified renal colic (principal); R10.9 Unspecified abdominal pain; N50.811 Right testicular pain
CPT/HCPCS: 99284; 74176; 81003; 81015; 87086; 99283